=== PATIENT | male | born 1985 | race Caucasian/White ===

== ENCOUNTER 2017-12-25 12:34 | Inpatient (IN) | payer MEDICAID, SELFPAY ==
[~2017-12-25] VITALS: Ht 172.7 cm; Wt 72.0 kg
[2017-12-25] MEDS ORDERED: FUROSEMIDE 40 MG/4 ML IV ONE (13:00)
[2017-12-25] MEDS ORDERED: FUROSEMIDE 40 MG/4 ML ONE ×2 (13:44→20:34)
[2017-12-25 13:53] LABS: ALANINE AMINOTRANSFERASE 252 U/L (12-78); ALBUMIN 2.9 g/dL (3.4-5.0); ANION GAP 7 mmol/L (5-15); CALCIUM 8.1 mg/dL (8.5-10.1); CHLORIDE 104 mmol/L (98-107); CREATININE 1.51 mg/dL (0.7-1.3)
[2017-12-25] MEDS ORDERED: SPIR25TA3 PO (13:55)
[2017-12-25] MEDS ORDERED: BICT1TAB PO (13:55)
[2017-12-25] MEDS ORDERED: WARF-36 PO (13:55)
[2017-12-25] MEDS ORDERED: ATOR20TA9 PO (13:55)
[2017-12-25] MEDS ORDERED: CARV6.2512 PO (13:55)
[2017-12-25] MEDS ORDERED: FURO20TA3 PO (13:55)
[2017-12-25] MEDS ORDERED: ENOX80SY5 SQ (13:55)
[2017-12-25 13:58] LABS: ALKALINE PHOSPHATASE 226 U/L (45-117); BILIRUBIN,TOTAL 0.9 mg/dL (0.2-1.0); TOTAL PROTEIN 7.4 g/dL (6.4-8.2); TROPONIN I 0.107 ng/mL (0.000-0.045)
[2017-12-25 14:00] LABS: BASOPHILS # (AUTO) 0.04 x10^3/uL (0-0.1); BASOPHILS % (AUTO) 1 % (0-1); EOSINOPHILS # (AUTO) 0.06 x10^3/uL (0-0.4); EOSINOPHILS % (AUTO) 1 % (1-7); LYMPHOCYTES # (AUTO) 2.68 x10^3/uL (1-3.4); LYMPHOCYTES % (AUTO) 35 % (22-44); MD NO; MEAN CORPUSCULAR HEMOGLOBIN 31.5 pg (27.5-34.5); MEAN CORPUSCULAR HGB CONC 32.8 g/dL (33.2-36.2); MEAN PLATELET VOLUME 8.1 fL (7.4-10.4); MONOCYTES # (AUTO) 0.54 x10^3/uL (0.2-0.8); MONOCYTES % (AUTO) 7 % (2-9); NEUTROPHILS % (AUTO) 57 % (42-75); PLATELET COUNT 215 x10^3/uL (130-400); RED BLOOD COUNT 5.34 x10^6/uL (4.38-5.82)
[2017-12-25 15:08] LABS: INTERNATIONAL NORMALIZED RATIO > 12.00 (0.93-1.1); PROTHROMBIN TIME 130.5 Seconds (9.6-11.5)
[2017-12-25 15:29] VITALS: BP 103/76
[2017-12-25] MEDS ORDERED: ONDANSETRON 2MG/ML, 2ML IVPush PRN (15:30)
[2017-12-25] MEDS ORDERED: TEMAZEPAM 15 MG CAPSULE PO PRN (15:30)
[2017-12-25] MEDS ORDERED: morphine SULFATE 10 MG/ML, 1ML IVPush PRN (15:30)
[2017-12-25] MEDS ORDERED: ONDANSETRON ODT 4 MG PO PRN (15:30)
[2017-12-25] MEDS: NICOTINE 14MG/24 HR PATCH.TD24 TD SCH (15:30)
[2017-12-25] MEDS ORDERED: hydrALAzine 20 MG/ML, 1ML IVPush PRN (15:30)
[2017-12-25] MEDS ORDERED: OXYcodone IR 5MG TABLET PO PRN (15:30)
[2017-12-25 17:22] LABS: AMPHETAMINE SCREEN, URINE Positive (Negative); BARBITURATE SCREEN, URINE Negative (Negative); BENZODIAZEPINE SCREEN, URINE Negative (Negative); CANNABINOID SCREEN, URINE Negative (Negative); COCAINE SCREEN, URINE Negative (Negative); METHADONE SCREEN, URINE Negative (Negative); OPIATE SCREEN, URINE Negative (Negative)
[2017-12-25 20:00] VITALS: BP 116/83
[2017-12-25] MEDS: FUROSEMIDE 100 MG/10 ML IV SCH (20:37)
[2017-12-25] MEDS: ATORVASTATIN 20 MG TABLET PO SCH (20:38)
[2017-12-25] MEDS: SPIRONOLACTONE 50 MG TABLET PO SCH (20:38)
[2017-12-25] MEDS: CARVEDILOL 6.25 MG TABLET PO SCH (20:38)
[2017-12-25] MEDS: [UNRECOGNIZED DRUG - OTHER] PO SCH (20:42)
[2017-12-25 22:38] LABS: TROPONIN I 0.085 ng/mL (0.000-0.045)
[2017-12-26 00:54] VITALS: BP 100/75
[2017-12-26 04:53] LABS: ALANINE AMINOTRANSFERASE 207 U/L (12-78); ALBUMIN 2.8 g/dL (3.4-5.0); ANION GAP 8 mmol/L (5-15); CALCIUM 8.5 mg/dL (8.5-10.1); CHLORIDE 102 mmol/L (98-107); CREATININE 1.34 mg/dL (0.7-1.3)
[2017-12-26 04:56] LABS: INTERNATIONAL NORMALIZED RATIO > 12.00 (0.93-1.1); PROTHROMBIN TIME 134.1 Seconds (9.6-11.5)
[2017-12-26 04:57] LABS: ALKALINE PHOSPHATASE 214 U/L (45-117); BILIRUBIN,TOTAL 0.9 mg/dL (0.2-1.0); TOTAL PROTEIN 7.2 g/dL (6.4-8.2); TROPONIN I 0.087 ng/mL (0.000-0.045)
[2017-12-26 08:02] VITALS: BP 110/81
[2017-12-26] MEDS ORDERED: FUROSEMIDE 40 MG/4 ML ONE ×2 (08:15→17:13)
[2017-12-26] MEDS: FUROSEMIDE 100 MG/10 ML IV SCH ×2 (08:23→17:24)
[2017-12-26] MEDS: SPIRONOLACTONE 50 MG TABLET PO SCH ×2 (08:24→20:56)
[2017-12-26] MEDS: CARVEDILOL 6.25 MG TABLET PO SCH ×2 (08:24→20:56)
[2017-12-26 13:52] VITALS: BP 107/76
[2017-12-26] MEDS: NICOTINE 14MG/24 HR PATCH.TD24 TD SCH (15:30)
[2017-12-26 19:02] VITALS: BP 100/78
[2017-12-26] MEDS: ATORVASTATIN 20 MG TABLET PO SCH (20:57)
[2017-12-26] MEDS: [UNRECOGNIZED DRUG - OTHER] PO SCH (20:57)
[2017-12-27 01:14] VITALS: BP 97/69
[2017-12-27] MEDS ORDERED: FUROSEMIDE 40 MG/4 ML IV SCH (09:00)
== END 2017-12-27 02:19 | disposition left against medical advice (07) | DRG 291 ==
LOC: ED 13:44 → EDIP 14:18 → 5SO 15:23
PROVIDERS: ADMIT Internal Medicine; ATTEND Internal Medicine
DX: I50.23 Acute on chronic systolic (congestive) heart failure (principal); B20 Human immunodeficiency virus [HIV] disease; D68.69 Other thrombophilia; E44.0 Moderate protein-calorie malnutrition; I24.8 Other forms of acute ischemic heart disease; I42.9 Cardiomyopathy, unspecified; I47.2 Ventricular tachycardia; N17.9 Acute kidney failure, unspecified; I24.0 Acute coronary thrombosis not resulting in myocardial infarction; B19.20 Unspecified viral hepatitis C without hepatic coma; E78.5 Hyperlipidemia, unspecified; F15.10 Other stimulant abuse, uncomplicated; F17.210 Nicotine dependence, cigarettes, uncomplicated; I34.0 Nonrheumatic mitral (valve) insufficiency; N18.3 Chronic kidney disease, stage 3 (moderate); Z66 Do not resuscitate; Z79.01 Long term (current) use of anticoagulants; Z80.8 Family history of malignant neoplasm of other organs or systems; Z86.14 Personal history of Methicillin resistant Staphylococcus aureus infection; Z68.24 Body mass index [BMI] 24.0-24.9, adult
CPT/HCPCS: 36415; 71045; 80053; 80307; 83735; 83880; 84100; 84484; 85025; 85610; 87040; 93005; 93306; 96374; J1940